=== PATIENT | female | born 2000 | race African-American/Black ===

== ENCOUNTER 2021-01-07 19:45 | Inpatient (IN) ==
[2021-01-07] MEDS ORDERED: ONDANSETRON 4 MG/2 ML VIAL IV PRN (19:54)
[2021-01-07] MEDS ORDERED: MEPERIDINE 50 MG/1 ML VIAL IV PRN (19:54)
[2021-01-07] MEDS ORDERED: BUTORPHANOL 2 MG/ML VIAL IV PRN (19:54)
[2021-01-07 20:19] LABS: Basophils # 0.1 10*3/uL (0.0-0.2); Basophils % 0.5 % (0.0-0.8); Eosinophils # 0.4 10*3/uL (0.0-0.87); Eosinophils % 3.5 % (0.00-10.9); Hematocrit 36.4 VOL% (35.7-47.0); Hemoglobin 11.4 GM/DL (12.0-16.0); Immature Granulocytes % 2.9 %; Immature Granulocytes Absolute 0.36 #; Lymphocytes # 2.4 10*3/uL (1.4-4.0); Lymphocytes % 19.8 % (21.3-54.2); Mean Corpuscular HGB Conc 31.3 GM/DL (32-36); Mean Corpuscular Volume 78.3 FL (87-102); Mean Platelet Volume 11.2 FL (9.6-12.0); Monocytes % 10.6 % (1.7-12.7); Neutrophils % 62.7 % (38.7-73.9); Platelet Count 323 T/CUMM (130-400); Red Blood Count 4.65 MC/CUMM (3.8-5.5); Red Cell Distribution Width 18.7 % (9.3-17.3); White Blood Count 12.3 T/CUMM (4-12)
[2021-01-07 20:40] LABS: Alanine Aminotransferase 62 U/L (13-56); Albumin 2.8 G/DL (3.4-5.0); Alkaline Phosphatase 264 U/L (45-117); Aspartate Amino Transferase 38 U/L (0-37); Bilirubin,Total < 0.39 MG/DL (0.20-1.00); Blood Urea Nitrogen 10 MG/DL (7-18); Calcium 9.2 MG/DL (8.5-10.1); Carbon Dioxide 18 MMOL/L (21-32); Estimated Glom Filtration Rate 169 ML/MIN; Glucose 109 MG/DL (74-106); Osmolality,Calculated 272.8 MOS/KG (273-304); Potassium 3.9 MMOL/L (3.5-5.1); Sodium 137 MMOL/L (136-145); Total Protein 8.3 G/DL (6.4-8.2)
[2021-01-07] MEDS ORDERED: LABETALOL 100 MG TABLET PO ONE (23:29)
[2021-01-07 23:47] LABS: Bilirubin,Direct < 0.100 MG/DL (0.0-0.20); Uric Acid 5.9 MG/DL (2.6-6.0)
[2021-01-07 23:55] LABS: INR 0.9; Partial Thromboplastin Time 27.1 SECS (23.9-33.8)
[2021-01-08 02:46] LABS: Protein/Creatinine Ratio,Urine 0.3 RATIO
[2021-01-08] MEDS ORDERED: FAMOTIDINE 20 MG/2 ML VIAL IV ONE (15:39)
[2021-01-08] MEDS ORDERED: ePHEDrine 50 MG/ML VIAL IV PRN (15:39)
[2021-01-08] MEDS ORDERED: NALOXONE 0.4 MG/ML VIAL IV PRN (15:39)
[2021-01-08] MEDS ORDERED: CITRIC ACID/SODIUM CITRATE 30 ML UDCUP PO ONE (15:39)
[2021-01-08] MEDS ORDERED: LACTATED RINGERS 1,000 ML IV ONE (15:39)
[2021-01-08] MEDS ORDERED: fentaNYL 2 MCG/ROPIV 0.2% EPID 100 ML EPIDURAL SCH (16:00)
[2021-01-08] MEDS: LACTATED RINGERS 1,000 ML IV PRN (16:43)
[2021-01-08 17:39] LABS: Bilirubin,Urine Negative (Negative); Blood, Urine Negative (Negative); Glucose,Urine (UA) Negative (Negative); Ketones,Urine 5 mg/dL (Negative); Mucus,Urine Few /LPF (Occasional); Nitrite,Urine Negative (Negative); Protein,Urine 30 MG/DL; RBC,Urine 3 /HPF (0-4); Squamous Epithelial Cell,Urine Occasional /HPF (0-10); Urine Appearance CLEAR (Clear); Urine Color Yellow (Yellow); Urine Specific Gravity 1.019 (1.001-1.035)
[2021-01-08] MEDS ORDERED: miSOPROStoL 200 MCG TABLET ONE (21:21)
[2021-01-08] MEDS ORDERED: CARBOPROST TROMETHAMINE 250 MCG/ML AMP IM ONE (21:21)
[2021-01-08] MEDS ORDERED: METHYLERGONOVINE 0.2 MG/1 ML AMP ONE (21:21)
[2021-01-08] MEDS ORDERED: TRANEXAMIC ACID 1,000 MG/10 ML VIAL ONE (21:21)
[2021-01-08] MEDS ORDERED: OXYTOCIN/LR 20 UNIT/1,000 ML BAG IV ONE (22:33)
[2021-01-09] MEDS: LACTATED RINGERS 1,000 ML IV PRN (00:06)
[2021-01-09] MEDS ORDERED: LIDOCAINE 1% 50 ML VIAL ONE (01:45)
[2021-01-09] MEDS ORDERED: BISACODYL 10 MG SUPP RECTAL PRN (02:52)
[2021-01-09] MEDS ORDERED: ACETAMINOPHEN 500 MG TABLET PO PRN (02:52)
[2021-01-09] MEDS ORDERED: ONDANSETRON 4 MG/2 ML VIAL IV PRN (02:52)
[2021-01-09] MEDS ORDERED: MAGNESIUM HYDROXIDE SUSP 30 ML UDCUP PO PRN (02:52)
[2021-01-09 02:54] LABS: Cord Venous Blood HCO3 15.7 MMOL/L; Cord Venous Blood PCO2 40.5 MMHG; Cord Venous Blood PO2 28.8
[2021-01-09 02:56] LABS: Cord Arterial Blood HCO3 15.6 MMOL/L
[2021-01-09] MEDS ORDERED: LACTATED RINGERS 1,000 ML IV SCH (03:00)
[2021-01-09] MEDS ORDERED: OXYTOCIN/LR 20 UNIT/1,000 ML BAG IV ONE ×2 (03:27→03:34)
[2021-01-09] MEDS: IBUPROFEN 800 MG TABLET PO PRN ×2 (04:33→16:40)
[2021-01-09 05:43] LABS: Basophils % 0.2 % (0.0-0.8); Eosinophils # 0.1 10*3/uL (0.0-0.87); Eosinophils % 0.5 % (0.00-10.9); Hematocrit 32.1 VOL% (35.7-47.0); Immature Granulocytes % 1.6 %; Immature Granulocytes Absolute 0.26 #; Lymphocytes # 1.1 10*3/uL (1.4-4.0); Mean Corpuscular HGB Conc 31.2 GM/DL (32-36); Mean Corpuscular Volume 79.9 FL (87-102); Mean Platelet Volume 11.4 FL (9.6-12.0); Monocytes % 9.5 % (1.7-12.7); Neutrophils % 81.2 % (38.7-73.9); Platelet Count 283 T/CUMM (130-400); Red Blood Count 4.02 MC/CUMM (3.8-5.5); Red Cell Distribution Width 18.5 % (9.3-17.3); White Blood Count 16.3 T/CUMM (4-12)
[2021-01-09 06:09] LABS: Band Neutrophils 2 % (0-10); Eosinophils 1 % (0-10); Lymphocytes 8 % (20-55); Segmented Neutrophils 84 % (50-85); Total Cells Counted 100
[2021-01-09 06:10] LABS: Hypochromasia 1+; Microcytosis 1+; Ovalocytes Slight; Platelet Estimate Normal
[2021-01-09] MEDS: DOCUSATE SODIUM 100 MG CAPSULE PO SCH ×2 (09:04→21:32)
[2021-01-09] MEDS: MULTIVITAMIN (PRENATAL) TABLET PO SCH (09:04)
[2021-01-09] MEDS ORDERED: BENZOCAINE 20%/MENTHOL 0.5% SPRAY 56 GM CAN TOP PRN (12:42)
[2021-01-10 05:29] LABS: Basophils # 0.1 10*3/uL (0.0-0.2); Basophils % 0.3 % (0.0-0.8); Eosinophils # 0.3 10*3/uL (0.0-0.87); Hematocrit 26.5 VOL% (35.7-47.0); Hemoglobin 8.4 GM/DL (12.0-16.0); Immature Granulocytes % 1.9 %; Immature Granulocytes Absolute 0.29 #; Lymphocytes % 20.1 % (21.3-54.2); Mean Corpuscular HGB Conc 31.7 GM/DL (32-36); Mean Corpuscular Volume 81.5 FL (87-102); Mean Platelet Volume 11.8 FL (9.6-12.0); Monocytes % 7.9 % (1.7-12.7); Neutrophils % 67.8 % (38.7-73.9); Platelet Count 261 T/CUMM (130-400); Red Blood Count 3.25 MC/CUMM (3.8-5.5); Red Cell Distribution Width 18.6 % (9.3-17.3); White Blood Count 14.9 T/CUMM (4-12)
[2021-01-10] MEDS: DOCUSATE SODIUM 100 MG CAPSULE PO SCH ×2 (09:11→21:05)
[2021-01-10] MEDS: IBUPROFEN 800 MG TABLET PO PRN ×2 (09:12→21:05)
[2021-01-10] MEDS: MULTIVITAMIN (PRENATAL) TABLET PO SCH (09:12)
[2021-01-11] MEDS: MULTIVITAMIN (PRENATAL) TABLET PO SCH (08:51)
[2021-01-11] MEDS: DOCUSATE SODIUM 100 MG CAPSULE PO SCH (08:51)
[2021-01-11 09:25] VITALS: BP 121/68
[2021-01-11] MEDS ORDERED: DIPH/TET/ACEL PERT BOOSTER VACCINE 0.5 ML VIAL IM ONE (09:39)
== END 2021-01-11 13:44 | disposition home or self-care (01) | DRG 560 ==
LOC: N.LDOUT 19:45 → N.LD 19:47 → N.OB 01-09 10:33
PROVIDERS: ADMIT Obstetrics & Gynecology; ATTEND Obstetrics & Gynecology